=== PATIENT | female | born 1955 | race Caucasian/White ===

== ENCOUNTER 2018-02-17 11:42 | Emergency (ER) | payer BC ==
[~2018-02-17] VITALS: Ht 167.6 cm; Wt 57.5 kg
[2018-02-17 11:48] VITALS: BP 139/63; PULSE 72; RESP 16; TEMP 97.9; O2SAT 97
[2018-02-17] MEDS ORDERED: CYCL5TAB PO (12:00)
[2018-02-17] MEDS ORDERED: PRED20 PO (12:00)
[2018-02-17] MEDS ORDERED: DICL50TA PO (12:09)
[2018-02-17] MEDS ORDERED: PERC5TAB12 PO (12:09)
--- NOTE | 2018-02-17 12:10 | PD ---
HPI Chief Complaint: Back/ Neck Pain or Injury Time Seen by Provider: 11:55 Travel History International Travel<30 days: No Contact w/Intl Traveler<30days: No Traveled to known affect area: No History of Present Illness HPI 63-year-old female presents to the emergency department for evaluation of left lower back pain. Patient reports history of chronic low back pain for a year when she had a fall. However, 4 days ago, the pain worsened. She was playing golf and when she swung a golf club, and exacerbating her left lower back pain. She denies a traumatic injury. No fevers or chills. No saddle anesthesias. No loss of bowel or bladder control. Patient went to urgent care on and Monday. She was given Toradol injection. She was also given injection of steroids. She was placed on Toradol p.o., prednisone, Flexeril. She did not like the Toradol p.o. and has not been taking. However, she has no improvement with the prednisone or muscle relaxants. Patient states she has been unable to sleep due to the pain. Patient has no history of IV drug use. Patient states she was on Holcomb in the past and it did not help her pain. She reports allergy to codeine. Exacerbating factor is movement, certain positions. No alleviating factors. Moderate severity. PFSH Past Medical History Medical History: Denies Significant Hx Diminished Hearing: No Tetanus Vaccination: < 5 Years ?: Not Past Surgical History Other Surgery: Yes (EAR AND RIGHT KNEE REPLACEMENT) Social History Alcohol Use: Yes (SOC) Tobacco Use: No Substance Use: No Allergies-Medications (Allergen,Severity, Reaction): Coded Allergies: codeine (Verified Allergy, Severe, 02/17/18) pt states she passes out Reported Meds & Prescriptions Reported Meds & Active Scripts Active Reported Flexeril (Cyclobenzaprine HCl) 5 Mg Tab 5 Mg PO TID Prednisone 20 Mg Tab 20 Mg PO DIRECTED 40 MG twice a day x 3 days, then 20 MG daily x 3 days, then 10 MG daily x 3 days Review of Systems Except as stated in HPI: all other systems reviewed are Neg Physical Exam Narrative GENERAL: Well-nourished, well-developed female patient, afebrile. SKIN: Focused skin assessment warm/dry. HEAD: Normocephalic. Atraumatic EYES: No scleral icterus. No injection or drainage. NECK: Supple, trachea midline. No JVD or lymphadenopathy. CARDIOVASCULAR: Regular rate and rhythm without murmurs, gallops, or rubs. Bilateral pedal pulses are 2+. RESPIRATORY: Breath sounds equal bilaterally. No accessory muscle use. Lung sounds are clear to auscultation peer GASTROINTESTINAL: Abdomen soft, non-tender, nondistended. MUSCULOSKELETAL: No cyanosis, or edema. Bilateral upper and lower extremity strength 5/5. All extremities are neurovascularly intact. BACK: Nontender without obvious deformity. No CVA tenderness. No midline spinal tenderness. No crepitus. She has tenderness over left lower lumbar paraspinal musculature. Straight leg raise is negative bilaterally. She is ambulatory with a steady gait. No clonus. Data Data Last Documented VS Vital Signs Date Time Temp Pulse Resp B/P (MAP) Pulse Ox O2 Delivery O2 Flow Rate FiO2 02/17/18 11:48 97.9 72 16 139/63 (88) 97 Orders Orders Oxycodone-Acetamin 5-325 Mg (Percocet (02/17/18 12:15) MDM Medical Decision Making Medical Screen Exam Complete: Yes Emergency Medical Condition: Yes Medical Record Reviewed: Yes Differential Diagnosis Muscle strain versus muscle spasm versus herniated disc versus sciatica Narrative Course 63-year-old female presents to the emergency department for evaluation of left low back pain for 4 days. Physical exam is consistent with muscle injury. No red flag symptoms. No traumatic injury. Patient is already on prednisone and muscle relaxants without improvement. She was given Toradol, which she is no longer taking because she had no improvement in symptoms. Patient is given Percocet 5/325 mg p.o. in the emergency department. She will be discharged with prescription for diclofenac and short-term prescription for Percocet. She is to continue prednisone and muscle relaxants as instructed. She is to follow with her primary care physician. She verbalizes agreement. The patient was discharged in stable condition with instructions, including return instructions and follow up instructions. Diagnosis Primary Impression: Low back pain Qualified Codes: M54.5 - Low back pain Referrals: Primary Care Physician call for appointment Patient Instructions: Back Pain (ED), General Instructions Departure Forms: Tests/Procedures, Work Release Enter return to work date: February 20, 2018 Additional Instructions: Continue prednisone as directed until gone. Continue muscle relaxants as needed Take diclofenac as directed as needed for [id number] pain. Do not take with other anti-inflammatories including Toradol, ibuprofen, naproxen. Take Percocet as directed as needed for moderate to severe pain. Caution this can make you drowsy so do not drive after taking. Heating pad on low for 20 minutes 4-5 times daily. Follow-up with a primary care physician. Return to the emergency department for any acute worsening of symptoms. Med/Other Pt SpecificInfo: Prescription(s) given Scripts Oxycodone-Acetaminophen (Percocet) 5-325 mg Tab 1 TAB PO Q6H Y for PAIN, #10 TAB 0 Refills Prov: Lupe Montes 02/17/18 Diclofenac Potassium (Diclofenac Potassium) 50 Mg Tab 50 MG PO TID Y for PAIN SCALE 1 TO 10, #21 TAB 0 Refills Prov: Lupe Montes 02/17/18 Disposition: 01 DISCHARGE HOME Condition: Stable Lupe Montes Feb 17, 2018 12:10
[2018-02-17] MEDS ORDERED: oxyCODONE/ACETAMINOPHEN 5 MG/325 MG TAB PO ONE (12:15)
== END 2018-02-17 12:34 | disposition home or self-care (01) ==
LOC: PHEFT 11:42
DX: M54.5 Low back pain (principal); G89.29 Other chronic pain; X50.9XXA Other and unspecified overexertion or strenuous movements or postures, initial encounter; Y93.53 Activity, golf
CPT/HCPCS: 99283